=== PATIENT | female | born 1995 | race African-American/Black ===

== ENCOUNTER 2017-09-05 17:10 | Emergency (ER) | payer SELFPAY ==
[~2017-09-05] VITALS: Ht 165.1 cm; Wt 59.0 kg
[2017-09-05 17:21] VITALS: BP 127/91; PULSE 68; RESP 18; TEMP 98.4; O2SAT 100
--- NOTE | 2017-09-05 21:58 | PD ---
HPI Chief Complaint: Chest Pain Time Seen by Provider: 21:34 Travel History International Travel<30 days: No Contact w/Intl Traveler<30days: No Traveled to known affect area: No History of Present Illness HPI The patient is a 22-year-old -[place] female who presents to the emergency department for chest pain. The patient notes a 2 week history of right-sided anterior chest pain that is worse with bending forward, inspiration , and sneezing. The patient has been experiencing pain for 2 weeks which she describes as constant, however, it is worse with bending over, coughing, and sneezing. She denies any left-sided chest pain, shortness of breath, nausea, vomiting, upper abdominal pain, or postprandial symptoms. The patient denies any history of pulmonary embolism or DVT. She denies any recent hospitalizations, surgeries, or prolonged travel. She is not on control and does not smoke. The patient denies any recent upper respiratory infections , fever, chills, or sweats. She denies any known history of clotting disorders. Symptoms are mild. [facility] Past Medical History Medical History: Denies Significant Hx LMP: September 05, 2017 Past Surgical History Surgical History: No Previous Surgery Social History Alcohol Use: No Tobacco Use: No Substance Use: No Allergies-Medications (Allergen,Severity, Reaction): Coded Allergies: No Known Allergies (Unverified , 09/05/17) Review of Systems Except as stated in HPI: all other systems reviewed are Neg General / Constitutional: No: Fever Cardiovascular: Positive: Chest Pain or Discomfort, No: Diaphoresis Respiratory: Positive: Pleuritic Pain, No: Shortness of Breath, Hemoptysis Gastrointestinal: No: Nausea, Vomiting, Abdominal Pain Musculoskeletal: No: Edema Physical Exam Narrative GENERAL: Awake, alert, pleasant 22-year-old female appears her stated age and is in no acute respiratory distress. Exam was performed in the presence of a female nurse. SKIN: Focused skin assessment warm/dry. HEAD: Atraumatic. Normocephalic. EYES: Pupils equal and round. No scleral icterus. No injection or drainage. ENT: No nasal bleeding or discharge. Mucous membranes pink and moist. NECK: Trachea midline. No JVD. CARDIOVASCULAR: Regular rate and rhythm. No murmur appreciated. Palpation of the chest wall does not reproduce symptoms. RESPIRATORY: No accessory muscle use. Clear to auscultation. Breath sounds equal bilaterally. GASTROINTESTINAL: Abdomen soft, non-tender, nondistended. Negative Nichole's. Back: No CVA tenderness. MUSCULOSKELETAL: No obvious deformities. No clubbing. No cyanosis. No edema. NEUROLOGICAL: Awake and alert. No obvious cranial nerve deficits. Motor grossly within normal limits. Normal speech. PSYCHIATRIC: Appropriate mood and affect; insight and judgment normal. Data Data Last Documented VS Vital Signs Date Time Temp Pulse Resp B/P (MAP) Pulse Ox O2 Delivery O2 Flow Rate FiO2 09/05/17 17:21 98.4 68 18 127/91 (103) 100 Orders Orders Electrocardiogram (09/05/17 ) Chest, Pa & Lat (09/05/17 ) Ed Discharge Order (09/05/17 22:59) MDM Medical Decision Making Medical Screen Exam Complete: Yes Emergency Medical Condition: Yes Medical Record Reviewed: Yes Interpretation(s) EKG reveals normal sinus rhythm with a rate of 72. Inverted T waves noted in lead V2, V3, V4. Last Impressions Chest X-Ray 09/05/17 0000 Signed Impressions: CONCLUSION: No acute cardiopulmonary findings. Differential Diagnosis Differential diagnosis includes costochondritis, pleurisy, chest wall pain, pericarditis, myocarditis, esophageal spasm, GERD, pleural effusion, pulmonary embolism. Narrative Course The patient's PERC score is 0. Heart rate is in the 70s, O2 saturation is in the high 90s, the PE or DVT. She also has no recent surgery, travel, hemoptysis , or leg swelling. Therefore, no indication for d-dimer CT pulmonary angiogram. Chest x-ray and EKG were ordered and interpreted. EKG reveals normal sinus rhythm with a rate of 70s. There were inverted T waves in V2, V3, V4. Chest x-ray is unremarkable. I doubt pulmonary embolism, no evidence of pneumonia. The patient will be placed on nonsteroidal anti-inflammatories and is advised to follow-up with a primary physician. Diagnosis Primary Impression: Atypical chest pain Patient Instructions: General Instructions Additional Instructions: Please provide the patient a copy of her EKG and chest x-ray results at discharge. Ibuprofen as directed. Follow-up with your primary physician. Return if symptoms worsen or progress. Med/Other Pt SpecificInfo: Prescription(s) given Scripts Ibuprofen (Ibuprofen) 600 Mg Tab 600 MG PO Q6H Y for Pain/Inflammation, #20 TAB 0 Refills Prov: Tao Ding MD 09/05/17 Disposition: 01 DISCHARGE HOME Condition: Stable Tao Ding MD Sep 05, 2017 21:58
--- NOTE | 2017-09-05 22:18 | RADRPT ---
EXAM DATE: 09/05/2017 10:15 PM EDT AGE/SEX: 22 years / Female INDICATIONS: Chest pain for the past two weeks. CLINICAL DATA: This is the patient's initial encounter. Patient reports that signs and symptoms have been present for 2 weeks and indicates a pain score of 5/10. MEDICAL/SURGICAL HISTORY: None. None. COMPARISON: No prior exams available for comparison. FINDINGS: PA and lateral views of the chest demonstrate the lungs to be symmetrically aerated without evidence of mass, infiltrate or effusion. The cardiomediastinal contours are unremarkable. Osseous structures are intact. CONCLUSION: No acute cardiopulmonary findings. Electronically signed by: Mitesh Galo MD 09/05/2017 10:16 PM EDT
[2017-09-05] MEDS ORDERED: IBUP-232 PO (23:02)
--- NOTE | 2017-09-06 20:46 | EKG ---
Date Performed: 09/05/2017 Time Performed: 21:51:48 PTAGE: 22 years EKG: Sinus rhythm MODERATE T-WAVE ABNORMALITY ABNORMAL ECG NO PREVIOUS TRACING DOCTOR: Arnol Lyon Interpretating Date/Time 09/06/2017 20:45:41
== END 2017-09-05 23:12 | disposition home or self-care (01) ==
LOC: NEPD 17:10 → EDSEX 17:10 → NEPD 23:12
DX: R07.89 Other chest pain (principal); R94.31 Abnormal electrocardiogram [ECG] [EKG]
CPT/HCPCS: 71046; 93005